=== PATIENT | female | born 1960 | race Caucasian/White ===

== ENCOUNTER 2017-08-04 15:48 | Emergency (ER) | payer BC ==
[2017-08-04] MEDS ORDERED: Zofran 4 MG/2 ML VIAL IV ONE (16:30)
[2017-08-04] MEDS ORDERED: MORPHINE SULFATE 2 MG INJ IV ONE (16:30)
[2017-08-04] MEDS ORDERED: Lactated Ringers 1,000 ML IV ONE ×2 (16:30→16:40)
--- NOTE | 2017-08-04 16:34 | ERPHSYRPT ---
- History of Present Illness Source: patient Patient Subjective Stated Complaint: PT REPORTS WEAKNESS, DIARRHEA, VOMITING WITH ABD CRAMPING SINCE 0700 TODAY. ALSO REPORTS COUGH FOR 4 WEEKS, TOOK A COURSE OF LEVAQUIN FOR BRONCHITIS- FINISHED LEVAQUIN 07/10/17 Triage Nursing Assessment: PT IS AOX3, PUPILS PERRL, PT AFEBRILE, RESPS EASY AND NON LABORED, SKIN IS PINK WARM DRY, ABD IS SOFT AND TENDER WITH PALP, BOWEL SOUNDS PRESENT AND NORMOACTIVE X4. SKIN PALE WARM AND DRY. Timing/Duration: today Severity: moderate Hx Tetanus, Diphtheria Vaccination/Date Given: Yes Hx Influenza Vaccination/Date Given: Yes Hx Pneumococcal Vaccination/Date Given: No Immunizations Up to Date: Yes <DEBBIE PONCE - Last Filed: 08/04/17 19:05> <LYNNE MACIAS - Last Filed: 08/04/17 19:47> - History of Present Illness Time Seen by Provider: 08/04/17 16:26 Physician History: CC: vomiting and diarrhea Hx: 57 y/o patient of Dr Whipple with hx of lupus. She has had diarrhea and some vomiting all day today. Unable to keep her meds down .She takes codiene twice a day for arthritis. No fever or chills. She has aches. Symptoms moderate. She has general weakness. Has had low K in the past. (DEBBIE PONCE) Allergies/Adverse Reactions: meperidine [From Demerol] Allergy (Verified 08/04/17 16:20) Sulfa (Sulfonamide Antibiotics) Allergy (Verified 08/04/17 16:20) azithromycin [From Zithromax Z-Dami] Adverse Reaction (Verified 08/04/17 16:20) tramadol [From Ultram] Adverse Reaction (Verified 08/04/17 16:20) - Review of Systems Constitutional: Malaise, No Fever, No Chills Eyes: No Symptoms Ears, Nose, & Throat: No Symptoms Respiratory: No Cough, No Dyspnea Cardiac: No Chest Pain Abdominal/Gastrointestinal: Nausea, Vomiting, Diarrhea, No Abdominal Pain Genitourinary Symptoms: No Dysuria Musculoskeletal: Myalgias, No Back Pain Skin: No Rash Neurological: No Headache All Other Systems: Reviewed and Negative <DEBBIE PONCE - Last Filed: 08/04/17 19:05> - Past Medical History Pertinent Past Medical History: Yes Cardiac History: Hypertension Endocrine Medical History: Hypothyroidism Musculoskeletal History: Osteoporosis GI Medical History: GERD Other Medical History: LUPUS - Social History Smoking Status: Never smoker Patient Lives Alone: No - Female History Hx Last Menstrual Period: 1994 Hx Now: No <DEBBIE PONCE - Last Filed: 08/04/17 19:05> - Physical Exam General Appearance: alert, thin Eye Exam: PERRL/EOMI Ears, Nose, Throat Exam: dry mucous membranes Neck Exam: normal inspection, non-tender, supple Respiratory Exam: normal breath sounds Cardiovascular Exam: regular rate/rhythm Gastrointestinal/Abdomen Exam: soft, No tenderness, No distention, No mass, No guarding Back Exam: normal inspection Extremity Exam: normal inspection, normal range of motion Neurologic Exam: alert, oriented x 3, cooperative, sensation nml, No motor deficits Skin Exam: warm, dry, pale, No rash <DEBBIE PONCE - Last Filed: 08/04/17 19:05> - Nursing Vital Signs Nursing Vital Signs: Initial Vital Signs Temperature 98.8 F 08/04/17 16:11 Respiratory Rate 20 08/04/17 16:11 Blood Pressure 119/67 08/04/17 16:11 Pain Scale Pain Intensity 6 - Course Nursing assessment & vital signs reviewed: Yes <DEBBIE PONCE - Last Filed: 08/04/17 19:05> Ordered Tests: Active Orders 24 hr Category Date Time Status Cath for Specimen-Straight STAT Care 08/04/17 16:31 Active IV Insertion STAT Care 08/04/17 16:30 Active CBC W DIFF Stat Lab 08/04/17 16:30 Completed CMP Stat Lab 08/04/17 16:30 Completed CULTURE,URINE Stat Lab 08/04/17 17:15 Received MAGNESIUM Stat Lab 08/04/17 16:30 Completed Manual Differential NC Stat Lab 08/04/17 16:30 Completed UA W/ MICROSCOPIC Stat Lab 08/04/17 17:15 Completed Medication Summary Discontinued Medications Generic Name Dose Route Start Last Admin Trade Name Freq PRN Reason Stop Dose Admin Lactated Ringer's 1,000 mls @ 999 mls/hr 08/04/17 16:30 08/04/17 17:00 Lactated Ringers IV 08/04/17 17:30 999 mls/hr .Q1H1M ONE Administration Lactated Ringer's Confirm 08/04/17 16:40 Lactated Ringers Administered 08/04/17 16:41 Dose 1,000 mls @ ud IV .STK-MED ONE Magnesium Sulfate/Dextrose 100 mls @ 200 mls/hr 08/04/17 19:02 08/04/17 19:20 Magnesium 1 Gm / 100 Ml D5w IV 08/04/17 19:31 200 mls/hr STAT ONE Administration Magnesium Sulfate/Dextrose Confirm 08/04/17 19:18 Magnesium 1 Gm / 100 Ml D5w Administered 08/04/17 19:19 Dose 100 mls @ ud IV .STK-MED ONE Morphine Sulfate 2 mg 08/04/17 16:30 08/04/17 17:01 Morphine Sulfate 2 Mg Inj IV 08/04/17 16:31 2 mg STAT ONE Administration Morphine Sulfate Confirm 08/04/17 16:40 Morphine Sulfate 2 Mg Inj Administered 08/04/17 16:41 Dose 2 mg .ROUTE .STK-MED ONE Ondansetron HCl 4 mg 08/04/17 16:30 08/04/17 17:01 Zofran 4 Mg/2 Ml Vial IV 08/04/17 16:31 4 mg STAT ONE Administration Ondansetron HCl Confirm 08/04/17 16:40 Zofran 4 Mg/2 Ml Vial Administered 08/04/17 16:41 Dose 4 mg .ROUTE .STK-MED ONE Lab/Rad Data: Laboratory Result Diagrams 08/04/17 16:30 08/04/17 16:30 Laboratory Results 08/04/17 08/04/17 08/04/17 Range/Units 17:15 16:30 16:30 WBC (4.0-10.5) K/mm3 RBC (4.1-5.4) M/mm3 Hgb (12.0-16.0) gm/dl Hct (35-47) % MCV (78-100) fl MCH (26-32) pg MCHC (32-36) g/dl RDW (11.5-14.0) % Plt Count (150-450) K/mm3 MPV (6-9.5) fl Sodium 140 (136-145) mEq/L Potassium 4.4 (3.5-5.1) mEq/L Chloride 105 (98-107) mEq/L Carbon Dioxide 21.5 (21-32) mEq/L Anion Gap 17.6 H (5-15) MEQ/L BUN 22 H (9-20) mg/dL Creatinine 0.79 (0.55-1.30) mg/dl Estimated GFR > 60 ML/MIN Glucose 88 (70-110) MG/DL Calcium 8.8 (8.5-10.1) mg/dL Magnesium 1.7 L (1.8-2.4) mg/dL Total Bilirubin 0.40 (0.2-1.0) mg/dL AST 21 (15-37) U/L ALT 10 L (12-78) U/L Alkaline Phosphatase 64 (46-116) U/L Serum Total Protein 6.8 (6.4-8.2) gm/dL Albumin 3.7 (3.4-5.0) g/dL Ur Collection Type CATH Urine Color YELLOW (YELLOW) Urine Appearance CLEAR (CLEAR) Urine pH 5.0 (5-6) Ur Specific [place] 1.025 (1.005-1.025) Urine Protein TRACE (Negative) Urine Ketones MODERATE (NEGATIVE) Urine Blood NEGATIVE (0-5) Matt/ul Urine Nitrite NEGATIVE (NEGATIVE) Urine Bilirubin NEGATIVE (NEGATIVE) Urine Urobilinogen NORMAL (0-1) mg/dL Ur Leukocyte Esterase NEGATIVE (NEGATIVE) Urine Microscopic RBC 0-2 (0-2) /HPF Urine Microscopic WBC 2-5 (0-5) /HPF Ur Epithelial Cells RARE (FEW) /HPF Urine Bacteria FEW (NEGATIVE) /HPF Hyaline Casts 2-5 (0-2) /LPF Urine Mucus SLIGHT (NEGATIVE) /HPF Urine Culture Reflexed YES (NO) Urine Glucose NEGATIVE (NEGATIVE) mg/dL Specimen Received 08/04/17 1715 08/04/17 Range/Units 16:30 WBC 10.3 (4.0-10.5) K/mm3 RBC 4.86 (4.1-5.4) M/mm3 Hgb 14.1 (12.0-16.0) gm/dl Hct 43.5 (35-47) % MCV 89.5 (78-100) fl MCH 29.0 (26-32) pg MCHC 32.4 (32-36) g/dl RDW 12.4 (11.5-14.0) % Plt Count 152 (150-450) K/mm3 MPV 11.0 H (6-9.5) fl Sodium (136-145) mEq/L Potassium (3.5-5.1) mEq/L Chloride (98-107) mEq/L Carbon Dioxide (21-32) mEq/L Anion Gap (5-15) MEQ/L BUN (9-20) mg/dL Creatinine (0.55-1.30) mg/dl Estimated GFR ML/MIN Glucose (70-110) MG/DL Calcium (8.5-10.1) mg/dL Magnesium (1.8-2.4) mg/dL Total Bilirubin (0.2-1.0) mg/dL AST (15-37) U/L ALT (12-78) U/L Alkaline Phosphatase (46-116) U/L Serum Total Protein (6.4-8.2) gm/dL Albumin (3.4-5.0) g/dL Ur Collection Type Urine Color (YELLOW) Urine Appearance (CLEAR) Urine pH (5-6) Ur Specific [place] (1.005-1.025) Urine Protein (Negative) Urine Ketones (NEGATIVE) Urine Blood (0-5) Matt/ul Urine Nitrite (NEGATIVE) Urine Bilirubin (NEGATIVE) Urine Urobilinogen (0-1) mg/dL Ur Leukocyte Esterase (NEGATIVE) Urine Microscopic RBC (0-2) /HPF Urine Microscopic WBC (0-5) /HPF Ur Epithelial Cells (FEW) /HPF Urine Bacteria (NEGATIVE) /HPF Hyaline Casts (0-2) /LPF Urine Mucus (NEGATIVE) /HPF Urine Culture Reflexed (NO) Urine Glucose (NEGATIVE) mg/dL Specimen Received <DEBBIE PONCE - Last Filed: 08/04/17 19:05> - Progress Progress: improved Counseled pt/family regarding: lab results, diagnosis, need for follow-up <LYNNE MACIAS - Last Filed: 08/04/17 19:47> - Progress Progress Note: 08/04/17 19:[address] Macias to review labs and arrange disposition. (DEBBIE PONCE) 08/04/17 19:15 Patient is interviewed, patient is feeling much better. Lab. Discussed with patient and her . Magnesium rider IV infusion is ordered. Plan to discharge patient home. After IV infusion. (LYNNE MACIAS) <DEBBIE PONCE - Last Filed: 08/04/17 19:05> - Departure Time of Disposition: 19:46 Departure Disposition: Home Critical Care Time: No <JHONATAN MACIASYESH - Last Filed: 08/04/17 19:47> - Departure Clinical Impression: Viral gastroenteritis, Hypomagnesemia Condition: Stable Referrals: Provider,Unknown [Primary Care Provider] - Instructions: Viral Gastroenteritis -- Adult Additional Instructions: VOMITING AND DIARRHEA 1. Take only small amounts of clear, cool liquids at frequent intervals as tolerated for the next 24-48 hours. Avoid milk products and orange juice. Clear liquids are those liquids which you can see through. 2. Pedialyte and popsicles are recommended clear liquids. 3. If the condition worsens you should contact your family physician or return to the emergency department for re-evaluation. VIRAL ILLNESS 1. Rest at home and take any prescribed medications as directed or until gone. 2. Offer plenty of fluids as tolerated. 3. Acetaminophen or Ibuprofen as directed. 4. Be sure to follow up with your family physician or return to the emergency department if symptoms change or become worse.
[2017-08-04 16:39] LABS: Granulocyte Absolute (ANC) 8.74 (1.4-6.9); Hematocrit 43.5 % (35-47); Hemoglobin 14.1 gm/dl (12.0-16.0); Mean Cell Volume 89.5 fl (78-100); Mean Corpuscular Hgb Concent. 32.4 g/dl (32-36); Platelet Count 152 K/mm3 (150-450); Red Blood Count 4.86 M/mm3 (4.1-5.4); Red Cell Distribution Width 12.4 % (11.5-14.0); White Blood Count 10.3 K/mm3 (4.0-10.5)
[2017-08-04] MEDS ORDERED: MORPHINE SULFATE 2 MG INJ ONE (16:40)
[2017-08-04] MEDS ORDERED: Zofran 4 MG/2 ML VIAL ONE (16:40)
[2017-08-04 16:52] LABS: ALBUMIN 3.7 g/dL (3.4-5.0); ALKALINE PHOSPHATASE 64 U/L (46-116); ANION GAP 17.6 MEQ/L (5-15); BLOOD UREA NITROGEN 22 mg/dL (9-20); CHLORIDE 105 mEq/L (98-107); Calcium 8.8 mg/dL (8.5-10.1); Carbon Dioxide 21.5 mEq/L (21-32); Creatinine 1 0.79 mg/dl (0.55-1.30); EST GLOMERULAR FILTRATION RATE > 60 ML/MIN; Glucose 88 MG/DL (70-110); Potassium 4.4 mEq/L (3.5-5.1); SGOT/AST 21 U/L (15-37); SGPT/ALT 10 U/L (12-78); SODIUM 140 mEq/L (136-145); Total Protein 6.8 gm/dL (6.4-8.2)
[2017-08-04 18:27] LABS: Appearance CLEAR (CLEAR); Bilirubin NEGATIVE (NEGATIVE); Blood NEGATIVE Ery/ul (0-5); Glucose NEGATIVE (NEGATIVE); Ketones MODERATE (NEGATIVE); Leukocyte Esterase NEGATIVE (NEGATIVE); Mucus SLIGHT /HPF (NEGATIVE); Nitrite NEGATIVE (NEGATIVE); Protein,Urine Dip TRACE (Negative); Specific Gravity 1.025 (1.005-1.025); Urobilinogen NORMAL mg/dL (0-1)
[2017-08-04 18:28] LABS: Bacteria FEW /HPF (NEGATIVE); Epithelial Cells RARE /HPF (FEW)
[2017-08-04] MEDS ORDERED: Magnesium 1 Gm / 100 Ml D5W*** 100 ML IV ONE ×2 (19:02→19:18)
[2017-08-04 20:20] VITALS: BP 125/99; PULSE 83; O2SAT 98
[2017-08-05 00:38] LABS: Eosinophil 2 % (0.00-3.0); Lymphocytes 8 % (24-44); Monocyte 4 % (0.0-12.0); Neutrophils 86 % (36.0-66.0); Platelet Estimate NORMAL (NORMAL); Total Cells Counted 100
[2017-08-05] MEDS ORDERED: Zofran 4 MG/2 ML VIAL ONE (05:27)
[2017-08-05] MEDS ORDERED: Lasix 40 MG/4 ML ONE (05:28)
== END 2017-08-04 20:19 | disposition home or self-care (01) ==
LOC: ED 15:48
DX: A08.4 Viral intestinal infection, unspecified (principal); E83.42 Hypomagnesemia
CPT/HCPCS: 36000; 36415; 80053; 81000; 83735; 85025; 87086; 96360; 96365; 99284; J1940; J2270; J2405; J3475; P9612

== ENCOUNTER 2019-08-18 09:08 | Emergency (ER) | payer BC ==
--- NOTE | 2019-08-18 09:15 | ERPHSYRPT ---
- History of Present Illness Time Seen by Provider: 08/18/19 09:15 Source: patient Exam Limitations: no limitations Patient Subjective Stated Complaint: Diarrhea Physician History: The patient is a 59-year-old female with a past medical history significant for a cholecystectomy performed in May 2019 and subsequent daily episodes of nonbloody diarrhea since that time. She presents with a chief complaint diarrhea. Her diarrhea reportedly became worse after she takes a medication that was prescribed by her primary care provider to amend her diarrhea symptoms. She states she had numerous episodes of nonbloody diarrhea last night and one episode of nonbloody diarrhea this morning. Endorse having some abdominal cramping is associated with his diarrhea which is her normal symptoms. She denies fever, chills,, nausea, vomiting, recent travel outside of the country, dysuria, increased urinary frequency, urgency or feeling of incomplete voiding. Her abdominal cramping is reportedly diffuse but primarily located in her lower quadrants. She's not take any ammonium. She states she has not eaten a fatty diet. There is no recent antibiotic use reported. There was no reported increase in her dose of synthroid Timing/Duration: other (2 months) Associated Symptoms: abdominal pain, other (Diarrhea), No nausea (and reactive) , No vomiting, No shortness of breath, No diaphoresis, No cough, No chills, No chest pain, No fever, No loss of appetite, No malaise, No rash Allergies/Adverse Reactions: meperidine [From Demerol] Allergy (Verified 08/04/17 16:20) Sulfa (Sulfonamide Antibiotics) Allergy (Verified 08/04/17 16:20) azithromycin [From Zithromax Z-Dami] Adverse Reaction (Verified 08/04/17 16:20) cephalexin Adverse Reaction (Verified 08/18/19 09:31) tramadol [From Ultram] Adverse Reaction (Verified 08/04/17 16:20) Home Medications: Acetaminophen with Codeine [Acetaminophen-Cod #3 Tablet] 0.5 tab PO HS 08/18/19 [History] Butalbital/Aspirin/Caffeine [Sagybp-Dsczyjg-Godca 50-325-40] 1 each PO UD PRN [History] Carisoprodol 350 mg [Soma 350 mg] 350 mg PO HS 08/18/19 [History] Estrogens,Conjugated [Premarin] 1.25 mg PO DAILY 08/18/19 [History] Famotidine [Pepcid] 40 mg PO DAILY 08/18/19 [History] Gabapentin [Neurontin] 600 mg PO DAILY 08/18/19 [History] Hydroxychloroquine Sulfate [Plaquenil] 400 mg PO DAILY 08/18/19 [History] Levothyroxine Sodium 50 Mcg [Synthroid 50 Mcg] 50 mcg PO DAILY 08/18/19 [ History] Lisinopril/Hydrochlorothiazide [Zestoretic 20-12.5 mg Tablet] 0.5 tab PO DAILY 08/18/19 [History] Hx Tetanus, Diphtheria Vaccination/Date Given: Yes Hx Influenza Vaccination/Date Given: Yes Hx Pneumococcal Vaccination/Date Given: No - Review of Systems Constitutional: No Fever, No Chills Eyes: No Symptoms Ears, Nose, & Throat: No Symptoms Respiratory: No Symptoms Cardiac: No Symptoms Abdominal/Gastrointestinal: Abdominal Pain, Diarrhea, No Nausea, No Vomiting, No Constipation, No Hematemesis, No Hematochezia, No Melena, No Dysphagia, No Appetite Changes Genitourinary Symptoms: No Dysuria, No Frequency, No Hematuria, No Hesitancy Musculoskeletal: No Symptoms Skin: No Symptoms Neurological: No Symptoms Psychological: No Symptoms All Other Systems: Reviewed and Negative - Past Medical History Pertinent Past Medical History: Yes Cardiac History: Hypertension Endocrine Medical History: Hypothyroidism Musculoskeletal History: Osteoporosis GI Medical History: GERD Other Medical History: LUPUS - Social History Smoking Status: Never smoker Patient Lives Alone: No - Nursing Vital Signs Nursing Vital Signs: Initial Vital Signs Temperature 97.5 F 08/18/19 09:17 Pulse Rate 89 08/18/19 09:17 Respiratory Rate 18 08/18/19 09:17 Blood Pressure 116/88 08/18/19 09:17 O2 Sat by Pulse Oximetry 96 08/18/19 09:17 Pain Scale Pain Intensity 2 - Physical Exam General Appearance: no apparent distress, alert Eye Exam: PERRL/EOMI, eyes nml inspection, No scleral icterus Ears, Nose, Throat Exam: normal ENT inspection, pharynx normal, moist mucous membranes, No pharyngeal erythema, No tonsillar exudate Neck Exam: non-tender, supple Respiratory Exam: normal breath sounds, lungs clear, airway intact, No chest tenderness, No respiratory distress Cardiovascular Exam: regular rate/rhythm, normal heart sounds, normal peripheral pulses, capillary refill <2 sec, No murmur, No friction rub, No gallop, No edema, No pulse deficit Gastrointestinal/Abdomen Exam: soft, normal bowel sounds, tenderness ( Tenderness noted to suprapubic region), other (Well-healed surgical scars present), No distention, No mass, No guarding, No ecchymosis Pelvic Exam: not done Rectal Exam: deferred Back Exam: normal inspection Extremity Exam: normal inspection Neurologic Exam: alert, oriented x 3, cooperative Skin Exam: normal color, warm, dry, No rash, No petechiae, No jaundice SpO2 Interpretation: normal O2 Delivery: Room Air - Course Nursing assessment & vital signs reviewed: Yes Ordered Tests: Active Orders 24 hr Category Date Time Status IV Insertion STAT Care 08/18/19 09:30 Active BMP Stat Lab 08/18/19 10:30 Completed CBC W DIFF Stat Lab 08/18/19 10:30 Completed Hepatic Function Panel Stat Lab 08/18/19 10:30 Completed LIPASE Stat Lab 08/18/19 10:30 Completed TSH [TSH, 3RD Generation] Stat Lab 08/18/19 09:46 Completed Medication Summary Discontinued Medications Generic Name Dose Route Start Last Admin Trade Name Freq PRN Reason Stop Dose Admin Dicyclomine HCl 20 mg 08/18/19 10:00 08/18/19 09:43 Bentyl 20 Mg PO 09/17/19 09:59 20 mg QID SAM Administration Dicyclomine HCl Confirm 08/18/19 09:42 Bentyl 20 Mg Administered 08/18/19 09:43 Dose 20 mg .ROUTE .STK-MED ONE Sodium Chloride 1,000 mls @ 999 mls/hr 08/18/19 09:29 08/18/19 09:43 Sodium Chloride 0.9% 1000 Ml IV 08/18/19 10:29 999 mls/hr .Q1H1M STA Administration Sodium Chloride Confirm 08/18/19 09:42 Sodium Chloride 0.9% 1000 Ml Administered 08/18/19 09:43 Dose 1,000 mls @ ud .ROUTE .STK-MED ONE Loperamide HCl 2 mg 08/18/19 09:31 08/18/19 09:56 Imodium 2 Mg PO 08/18/19 09:32 2 mg STAT ONE Administration Lab/Rad Data: Laboratory Result Diagrams 08/18/19 10:30 08/18/19 10:30 Laboratory Results 08/18/19 08/18/19 08/18/19 Range/Units 10:30 10:30 09:46 WBC 8.3 (4.0-10.5) K/mm3 RBC 4.28 (4.1-5.4) M/mm3 Hgb 13.1 (12.0-16.0) gm/dl Hct 39.1 (35-47) % MCV 91.4 (78-100) fl MCH 30.6 (26-32) pg MCHC 33.5 (32-36) g/dl RDW 12.1 (11.5-14.0) % Plt Count 210 (150-450) K/mm3 MPV 10.9 (7.5-11.0) fl Gran % 79.1 H (36.0-66.0) % Eos # (Auto) 0.07 (0-0.5) Absolute Lymphs (auto) 1.29 (1.0-4.6) Absolute Monos (auto) 0.34 (0.0-1.3) Lymphocytes % 15.6 L (24.0-44.0) % Monocytes % 4.1 (0.0-12.0) % Eosinophils % 0.8 (0.00-5.0) % Basophils % 0.4 (0.0-0.4) % Absolute Granulocytes 6.56 (1.4-6.9) Basophils # 0.03 (0-0.4) Sodium 138 (137-145) mmol/L Potassium 4.1 (3.5-5.1) mmol/L Chloride 103 (98-107) mmol/L Carbon Dioxide 25 (22-30) mmol/L Anion Gap 14.2 (5-15) MEQ/L BUN 18 H (7-17) mg/dL Creatinine 0.87 (0.52-1.04) mg/dL Estimated GFR > 60.0 ML/MIN Glucose 96 (74-106) mg/dL Calcium 9.0 (8.4-10.2) mg/dL Total Bilirubin 0.50 (0.2-1.3) mg/dL Direct Bilirubin 0.2 (0.0-0.4) mg/dL AST 25 (14-36) U/L ALT 14 (0-35) U/L Alkaline Phosphatase 58 (38-126) U/L Serum Total Protein 7.0 (6.3-8.2) g/dL Albumin 4.1 (3.5-5.0) g/dL Lipase 43 (23-300) U/L TSH 3rd Generation 0.379 L (0.47-4.68) mIU/L - Progress Progress: improved Progress Note: 08/18/19 10:59 Labs reviewed and with a mildly elevated BUN which may support some component of dehydration. Remaining labs wnl. 08/18/19 11:22 nursing staff was unable to obtain IV access on this patient. They attempted multiple times to unsuccessful. Given the patient's overall well appearance and her labs show just a mildly increased BUN she probably has very minimal dehydration at this point. I'll go ahead and proceed with oral fluids at this time when she demonstrates ability to tolerate by mouth she'll be discharged home. 08/18/19 11:46 the patient has had no diarrhea in the emergency department. She is able to drink a cup of water without difficulty and her abdominal cramping has resolved. She was comfortable with being discharged home and requested a prescription for Bentyl. I instructed her to follow up with her primary care provider and to drink plenty of fluids, specifically water. She stated that she had Imodium to take at home and did not need a prescription for this. Counseled pt/family regarding: lab results, diagnosis, need for follow-up - Departure Departure Disposition: Home Clinical Impression: Diarrhea Condition: Stable Critical Care Time: No Referrals: MESFIN VIGIL [Primary Care Provider] - Instructions: Diarrhea in Adolescents and Adults Prescriptions: Dicyclomine HCl 20 mg [Bentyl 20 mg] 20 mg PO Q6HPRN PRN #20 tablet PRN Reason: Pain
[2019-08-18] MEDS ORDERED: Sodium Chloride 0.9% 1000 ML 1,000 ML IV STA (09:29)
[2019-08-18 09:30] VITALS: BP 116/88; PULSE 89; O2SAT 96
[2019-08-18] MEDS ORDERED: IMODIUM 2 MG PO ONE (09:31)
[2019-08-18] MEDS ORDERED: BENTYL 20 MG ONE (09:42)
[2019-08-18] MEDS ORDERED: Sodium Chloride 0.9% 1000 ML 1,000 ML ONE (09:42)
[2019-08-18] MEDS ORDERED: BENTYL 20 MG PO SCH (10:00)
[2019-08-18 10:37] LABS: Absolute Neutrophil Ct (ANC) 6.56 (1.4-6.9); BASOPHIL % 0.4 % (0.0-0.4); Basophil (Absolute #) 0.03 (0-0.4); Eosinophil % 0.8 % (0.00-5.0); Eosinophil (Absolute #) 0.07 (0-0.5); Hematocrit 39.1 % (35-47); Hemoglobin 13.1 gm/dl (12.0-16.0); Lymphocyte (Absolute #) 1.29 (1.0-4.6); Lymphocytes % 15.6 % (24.0-44.0); Mean Cell Volume 91.4 fl (78-100); Mean Corpuscular Hemoglobin 30.6 pg (26-32); Mean Corpuscular Hgb Concent. 33.5 g/dl (32-36); Mean Platelet Volume 10.9 fl (7.5-11.0); Monocyte (Absolute #) 0.34 (0.0-1.3); Monocytes % 4.1 % (0.0-12.0); Neutrophil % 79.1 % (36.0-66.0); Platelet Count 210 K/mm3 (150-450); Red Blood Count 4.28 M/mm3 (4.1-5.4); Red Cell Distribution Width 12.1 % (11.5-14.0); White Blood Count 8.3 K/mm3 (4.0-10.5)
[2019-08-18 10:48] LABS: ALBUMIN 4.1 g/dL (3.5-5.0); ALKALINE PHOSPHATASE 58 U/L (38-126); ANION GAP 14.2 MEQ/L (5-15); BLOOD UREA NITROGEN 18 mg/dL (7-17); CHLORIDE 103 mmol/L (98-107); Carbon Dioxide 25 mmol/L (22-30); Creatinine 1 0.87 mg/dL (0.52-1.04); Direct Bilirubin 0.2 mg/dL (0.0-0.4); Glucose 96 mg/dL (74-106); LIPASE 43 U/L (23-300); Potassium 4.1 mmol/L (3.5-5.1); SGOT/AST 25 U/L (14-36); SGPT/ALT 14 U/L (0-35); SODIUM 138 mmol/L (137-145)
== END 2019-08-18 12:05 | disposition home or self-care (01) ==
LOC: ED 09:08
DX: R19.7 Diarrhea, unspecified (principal); Z79.899 Other long term (current) drug therapy
CPT/HCPCS: 36415; 80048; 80076; 83690; 84443; 85025; 96360; 99283; A9270-GY